=== PATIENT | male | born 1950 | race Caucasian/White ===

== ENCOUNTER 2016-08-16 11:08 | Observation (INO) | payer BC ==
[2016-08-16] VITALS (9 sets, daily range): BP systolic 118–202; BP diastolic 75–116; PULSE 74–87; RESP 16–20; TEMP 97–98; O2SAT 96–98
[~2016-08-16] VITALS: Ht 172.7 cm; Wt 81.3 kg
--- NOTE | 2016-08-16 11:39 | PD ---
HPI Chief Complaint: Chest Pain Time Seen by Provider: 11:37 Travel History International Travel<30 days: No Contact w/Intl Traveler<30days: No History of Present Illness HPI Patient comes in complaining of left-sided chest discomfort ongoing intermittently for a while now. Patient states he become more aware of it since being of this year. He states he last had a stress test 10+ years ago. Patient reports associated dyspnea on exertion, but not walking upstairs. Denies any associated shortness of breath, nausea, vomiting, headache, numbness or tingling anywhere, back pain, or abdominal pain. Patient states that when he went to his dentist was noted that his blood pressure was quite elevated and recommended he comes emergency Department for further treatment and evaluation. Patient denies any immediate family history of heart disease. PFSH Past Medical History High Cholesterol: Yes Hypertension: Yes Social History Alcohol Use: Yes Tobacco Use: Yes (rare cigar) Substance Use: No Allergies-Medications (Allergen,Severity, Reaction): Coded Allergies: Sulfa (Verified Allergy, Unknown, Rash, 08/16/16) Reported Meds & Prescriptions Reported Meds & Active Scripts Active Reported Ventolin Hfa 18 GM Inh (Albuterol Sulfate) 90 Mcg/Act Aer 2 Puff INH Q4-6H PRN [Med For Bph] Lipitor (Atorvastatin Calcium) 10 Mg Tab 10 Mg PO HS Lisinopril 10 Mg Tab 10 Mg PO DAILY Review of Systems Except as stated in HPI: all other systems reviewed are Neg Physical Exam Narrative GENERAL: Well-developed, overly nourished, in no acute distress, and non-ill appearing. SKIN: Warm and dry. HEAD: Atraumatic. Normocephalic. EYES: Pupils equal and round. EOMI. No scleral icterus. No injection or drainage. ENT: No nasal bleeding or discharge. Mucous membranes pink and moist. NECK: Trachea midline. No JVD. Supple. No nuclear rigidity. CARDIOVASCULAR: Regular rate and rhythm. No murmur appreciated. RESPIRATORY: No accessory muscle use. No respiratory distress. Clear to auscultation. Breath sounds equal bilaterally. MUSCULOSKELETAL: No obvious deformities. No clubbing. No cyanosis. No edema. Full range of motion. NEUROLOGICAL: Awake and alert. No obvious cranial nerve deficits. Motor grossly within normal limits. Normal speech. PSYCHIATRIC: Appropriate mood and affect; insight and judgment normal. Data Data Last Documented VS Vital Signs Date Time Temp Pulse Resp B/P Pulse Ox O2 Delivery O2 Flow Rate FiO2 08/16/16 12:27 80 16 168/104 98 Room Air 08/16/16 11:20 98.0 Orders Electrocardiogram (08/16/16 11:35) Basic Metabolic Panel (Bmp) (08/16/16 11:35) Ckmb (Isoenzyme) Profile (08/16/16 11:35) Complete Blood Count With Diff (08/16/16 11:35) Magnesium (Mg) (08/16/16 11:35) Prothrombin Time / Inr (Pt) (08/16/16 11:35) Act Partial Throm Time (Ptt) (08/16/16 11:35) Troponin I (08/16/16 11:35) Chest, Single Ap (08/16/16 11:35) Ecg Monitoring (08/16/16 11:35) Bilateral Bp Monitoring (08/16/16 11:35) Iv Access Insert/Monitor (08/16/16 11:35) Oximetry (08/16/16 11:35) Oxygen Administration (08/16/16 11:35) Aspirin Chew (Aspirin Chew) (08/16/16 11:45) Clonidine (Catapres) (08/16/16 11:45) Labs Laboratory Tests Test 08/16/16 11:30 White Blood Count 7.1 TH/MM3 Red Blood Count 5.83 MIL/MM3 Hemoglobin 16.5 GM/DL Hematocrit 49.3 % Mean Corpuscular Volume 84.6 FL Mean Corpuscular Hemoglobin 28.3 PG Mean Corpuscular Hemoglobin 33.4 % Concent Red Cell Distribution Width 12.9 % Platelet Count 245 TH/MM3 Mean Platelet Volume 7.7 FL Neutrophils (%) (Auto) 59.9 % Lymphocytes (%) (Auto) 28.6 % Monocytes (%) (Auto) 7.5 % Eosinophils (%) (Auto) 3.3 % Basophils (%) (Auto) 0.7 % Neutrophils # (Auto) 4.4 TH/MM3 Lymphocytes # (Auto) 2.0 TH/MM3 Monocytes # (Auto) 0.5 TH/MM3 Eosinophils # (Auto) 0.2 TH/MM3 Basophils # (Auto) 0.0 TH/MM3 CBC Comment DIFF FINAL Differential Comment Prothrombin Time 11.0 SEC Prothromb Time International 1.0 RATIO Ratio Activated Partial 26.5 SEC Thromboplast Time Sodium Level 141 MEQ/L Potassium Level 3.9 MEQ/L Chloride Level 105 MEQ/L Carbon Dioxide Level 27.0 MEQ/L Anion Gap 9 MEQ/L Blood Urea Nitrogen 18 MG/DL Creatinine 0.96 MG/DL Estimat Glomerular Filtration 79 ML/MIN Rate Random Glucose 87 MG/DL Calcium Level 8.9 MG/DL Magnesium Level 2.6 MG/DL Total Creatine Kinase 85 U/L Troponin I LESS THAN 0.02 NG/ML MDM Medical Decision Making Medical Screen Exam Complete: Yes Emergency Medical Condition: Yes Interpretation(s) EKG reviewed by Dr. Kramer, shows normal sinus rhythm with ventricular rate of 74. No STEMI and no acute changes. Differential Diagnosis Acute coronary syndrome, atypical chest pain, uncontrolled hypertension, other Narrative Course Patient seen and examined. Initial laboratory, EKG revealed studies were obtained and reviewed. Discussed patient with Dr. Kramer, saw evaluated the patient and recommends having the patient placed in the chest pain center for further treatment and evaluation. Discussed all findings and plan of care with patient and his , who is agreeable for admission. All questions were answered. Physician Communication Physician Communication [address] Valdivia, who is agreeable to admit the patient. Diagnosis Primary Impression: Chest pain Qualified Code: R07.9 - Chest pain, unspecified type Additional Impression: Hypertension Qualified Code: I10 - Essential hypertension Condition: Stable Bryan Gurrola Aug 16, 2016 11:39
[2016-08-16] MEDS ORDERED: cloNIDine HCL 0.2 MG TAB PO ONE (11:45)
[2016-08-16] MEDS ORDERED: ASPIRIN 81 MG CHEW TAB PO ONE (11:45)
[2016-08-16] MEDS ORDERED: LISI10TA3 PO (11:49)
[2016-08-16] MEDS ORDERED: LIPI10TA PO (11:49)
[2016-08-16] MEDS ORDERED: [UNRECOGNIZED DRUG - REMARK] (11:49)
[2016-08-16] MEDS ORDERED: VENTAER INH (11:49)
--- NOTE | 2016-08-16 11:49 | RADHPO ---
EXAM DATE/TIME: 08/16/2016 11:38 [facility] COMPARISON: No previous studies available for comparison. INDICATIONS : High blood pressure. Mild chest pain. MEDICAL HISTORY : Hypertension. Hypercholesterolemia. SURGICAL HISTORY : None. ENCOUNTER: Initial ACUITY: 1 month PAIN SCORE: 10 LOCATION: chest FINDINGS: A single view of the chest demonstrates the lungs to be symmetrically aerated without evidence of mas s, infiltrate or effusion. The lung rosario are hyperaerated. The cardiomediastinal contours are unrem arkable. Osseous structures are intact. CONCLUSION: No acute intrathoracic disease. Marvel Li MD on August 16, 2016 at 11:47 Board Certified Radiologist. This report was verified electronically.
[2016-08-16 11:50] LABS: AUTOMATED NEUTROPHIL # 4.4 TH/MM3 (1.8-7.7); BASOPHIL % 0.7 % (0.0-2.0); EOSINOPHIL # 0.2 TH/MM3 (0-0.4); EOSINOPHIL % 3.3 % (0.0-4.0); HEMATOCRIT 49.3 % (39.0-51.0); HEMO FLAGS DIFF FINAL; LYMPH % 28.6 % (9.0-44.0); MEAN CELL VOLUME 84.6 FL (80.0-100.0); MEAN CORPUSCULAR HEMOGLOBIN 28.3 PG (27.0-34.0); MEAN CORPUSCULAR HGB CONC 33.4 % (32.0-36.0); MONO % 7.5 % (0.0-8.0); NEUT % 59.9 % (16.0-70.0); PLATELET COUNT 245 TH/MM3 (150-450); RED BLOOD COUNT 5.83 MIL/MM3 (4.50-5.90); RED CELL DISTRIBUTION WIDTH 12.9 % (11.6-17.2); WHITE BLOOD COUNT 7.1 TH/MM3 (4.0-11.0)
[2016-08-16 11:57] LABS: CHLORIDE 105 MEQ/L (98-107); POTASSIUM 3.9 MEQ/L (3.5-5.1); SODIUM (NA) 141 MEQ/L (136-145)
[2016-08-16 12:00] LABS: ANION GAP 9 MEQ/L (5-15); BLOOD UREA NITROGEN 18 MG/DL (7-18); MAGNESIUM 2.6 MG/DL (1.5-2.5)
[2016-08-16 12:01] LABS: APTT (PATIENT) 26.5 SEC (24.3-30.1)
[2016-08-16 12:03] LABS: GLOMERULAR FILTRATION RATE 79 ML/MIN (>89)
[2016-08-16 12:10] LABS: CREATINE KINASE 85 U/L (39-308)
[2016-08-16] MEDS ORDERED: cloNIDine HCL 0.1 MG TAB PO PRN (12:45)
[2016-08-16] MEDS ORDERED: ACETAMINOPHEN/HYDROcodone 325 MG/7.5 MG TAB PO PRN (12:45)
[2016-08-16] MEDS ORDERED: ACETAMINOPHEN 500 MG CPLT PO PRN (12:45)
[2016-08-16] MEDS ORDERED: NITROGLYCERIN 0.4 MG SL 25 TABS/BTL SL PRN (12:45)
[2016-08-16] MEDS ORDERED: SODIUM CHLORIDE 0.9% FLUSH 5 ML FLUSH IVF PRN (12:45)
[2016-08-16] MEDS ORDERED: ONDANSETRON HCL 4 MG/2 ML VIAL IV PRN (12:45)
[2016-08-16] MEDS: METOPROLOL TARTRATE 25 MG TAB PO SCH ×2 (13:20→20:46)
[2016-08-16] MEDS: LISINOPRIL 10 MG TAB PO SCH (13:22)
[2016-08-16 15:37] LABS: CREATINE KINASE 69 U/L (39-308)
--- NOTE | 2016-08-16 17:32 | HHI.HP ---
[facility] Service [facility] Primary Care Physician Carrol Deluna MD Admission Diagnosis atypical chest pain, hypertension Diagnoses: (1) Chest pain Diagnosis: Principal (2) Hypertension Diagnosis: Secondary (3) Hyperlipidemia Diagnosis: Secondary Chief Complaint: Chest pain Travel History International Travel<30 Days: No Contact w/Intl Traveler <30 Da: No Traveled to Known Affected Are: No History of Present Illness 65-year-old male with known history of hypertension, hyperlipidemia who presented to the hospital because of elevated blood pressure. Patient states that he has long-standing history of hypertension and he went to the dentist today and was told that his blood pressure was elevated at 171/118. Patient states that over the last month he has been having intermittent chest discomfort located in the middle part of his chest. It is not worsened with activity. He states that it is very intermittent, self resolving. Nothing makes it better, nothing makes it worse. He denies any nausea, vomiting, shortness of breath, dyspnea. He does not indicate that he has notified his primary medical doctor that he experiencing any chest discomfort. The patient came to emergency department today because of his elevated blood pressure at the dentist. Because of his symptoms is recommended by the ER physician that the patient be observed and chest pain center for further evaluation and management. Review of Systems Constitutional: DENIES: Diaphoretic episodes, Fatigue, Fever, Weight gain, Weight loss, Chills, Dizziness, Change in appetite, Night Sweats Eyes: DENIES: Blurred vision, Diplopia, Eye inflammation, Eye pain, Vision loss , Double Vision Ears, nose, mouth, throat: DENIES: Vertigo, Nasal discharge, Throat pain, Ear Pain, Running Nose, Sinus Pain Respiratory: DENIES: Apneas, Cough, Snoring, Wheezing, Hemoptysis, Sputum production, Shortness of breath Cardiovascular: COMPLAINS OF: Chest pain, DENIES: Palpitations, Syncope, Dyspnea on Exertion, Lower Extremity Edema, Orthopnea Gastrointestinal: DENIES: Abdominal pain, Black stools, Bloody stools, Constipation, Diarrhea, Nausea, Vomiting, Difficulty Swallowing, Anorexia Neurologic: DENIES: Abnormal gait, Headache, Localized weakness, Paresthesias, Seizures, Speech Problems, Tremor, Poor Balance Psychiatric: DENIES: Anxiety, Confusion, Mood changes, Depression Past Family Social History Past Medical History Hypertension Hyperlipidemia Past Surgical History Vasectomy Reported Medications Reported Meds & Active Scripts Active Reported Ventolin Hfa 18 GM Inh (Albuterol Sulfate) 90 Mcg/Act Aer 2 Puff INH Q4-6H PRN [Med For Bph] Lipitor (Atorvastatin Calcium) 10 Mg Tab 10 Mg PO HS Lisinopril 10 Mg Tab 10 Mg PO DAILY Allergies: Coded Allergies: Sulfa (Verified Allergy, Unknown, Rash, 08/16/16) Family History Reviewed and rather unremarkable. Patient states that only cardiac history as in his uncle with history of myocardial infarction Social History Patient used to smoke cigarettes, however he only smokes approximately 2 cigars weekly. Patient states that he drinks 1 beer daily. Patient denies any illicit drugs Physical Exam Vital Signs Vital Signs Date Time Temp Pulse Resp B/P Pulse Ox O2 Delivery O2 Flow Rate FiO2 08/16/16 16:00 87 16 128/87 97 Room Air 08/16/16 13:54 84 16 122/76 98 Room Air 08/16/16 12:53 84 18 153/83 98 Room Air 08/16/16 12:27 80 16 168/104 98 Room Air 08/16/16 11:30 16 98 Room Air 08/16/16 11:30 98 Room Air 08/16/16 11:30 80 197/114 202/116 08/16/16 11:25 80 08/16/16 11:20 98.0 80 16 197/114 98 Physical Exam GENERAL: Well-developed, well-nourished, in no acute distress. alert and orientated HEENT: Head is normocephalic without any lesions or masses noted. Facial features are symmetric. Eyes: Pupils equal round reactive to light. Extraocular muscles are intact. Conjunctivae were clear. Oropharyngeal: Pharynx without any erythema edema. Tongue is midline without deviation. Buccal mucosa is moist without any masses or lesions NECK: Supple without any masses. Trachea midline no deviation. No JVD, no bruits are appreciated CARDIAC: Regular rhythm, regular rate. S1/S2 are heard. No murmurs gallops or rubs. LUNGS: Clear to auscultation bilaterally. No wheeze, rhonchi or rales. No use of accessory muscles on inspiration or expiration. ABDOMEN: Soft, nontender. Nondistended. Bowel sounds heard in all 4 quadrants. No organomegaly or masses. Negative rebound, negative guarding EXTREMITIES: No edema, pulses are equal bilaterally. No cyanosis or clubbing NEUROLOGY: Mood and affect appear appropriate. Cranial nerves II through XII grossly intact. Muscle strength 5/5 in upper and lower extremities bilaterally. Deep tendon reflexes are 2+ in upper and lower extremities bilaterally. Laboratory Laboratory Tests Test 08/16/16 08/16/16 11:30 14:30 White Blood Count 7.1 Red Blood Count 5.83 Hemoglobin 16.5 Hematocrit 49.3 Mean Corpuscular Volume 84.6 Mean Corpuscular Hemoglobin 28.3 Mean Corpuscular Hemoglobin 33.4 Concent Red Cell Distribution Width 12.9 Platelet Count 245 Mean Platelet Volume 7.7 Neutrophils (%) (Auto) 59.9 Lymphocytes (%) (Auto) 28.6 Monocytes (%) (Auto) 7.5 Eosinophils (%) (Auto) 3.3 Basophils (%) (Auto) 0.7 Neutrophils # (Auto) 4.4 Lymphocytes # (Auto) 2.0 Monocytes # (Auto) 0.5 Eosinophils # (Auto) 0.2 Basophils # (Auto) 0.0 CBC Comment DIFF FINAL Differential Comment Prothrombin Time 11.0 Prothromb Time International 1.0 Ratio Activated Partial 26.5 Thromboplast Time Sodium Level 141 Potassium Level 3.9 Chloride Level 105 Carbon Dioxide Level 27.0 Anion Gap 9 Blood Urea Nitrogen 18 Creatinine 0.96 Estimat Glomerular Filtration 79 Rate Random Glucose 87 Calcium Level 8.9 Magnesium Level 2.6 Total Creatine Kinase 85 69 Troponin I LESS THAN 0.02 LESS THAN 0.02 Result Diagram: 08/16/16 1130 08/16/16 1130 Imaging Last Impressions Chest X-Ray 08/16/16 1135 Signed Impressions: Service Date/Time: Tuesday, August 16, 2016 11:38 - CONCLUSION: No acute intrathoracic disease. Marvel Li MD Assessment and Plan Assessment and Plan Chest pain, atypical Patient with increased risk factors to include age, male, hypertension, hyperlipidemia, remote family history of heart disease We'll continue to evaluate serial cardiac enzymes rule out any acute coronary event Serial EKGs thus far showed normal sinus rhythm without any changes We'll pursue exercise stress test rule out any underlying ischemia Continue aspirin and nitroglycerin as needed next line Hypertension Continue home medications Hyperlipidemia Continue home medications DVT prevention Sequential compression devices Problem Qualifiers (1) Chest pain: Qualified Code: R07.9 - Chest pain, unspecified type (2) Hypertension: Qualified Code: I10 - Essential hypertension (3) Hyperlipidemia: Qualified Code: E78.5 - Hyperlipidemia, unspecified hyperlipidemia type Efra Elias Aug 16, 2016 17:32
[2016-08-16 18:10] LABS: CREATINE KINASE 77 U/L (39-308)
[2016-08-16] MEDS: SODIUM CHLORIDE 0.9% FLUSH 5 ML FLUSH IVF SCH (20:46)
[2016-08-16] MEDS ORDERED: ATORVASTATIN 10 MG TAB PO SCH (21:00)
[2016-08-17] VITALS: BP 116/76; PULSE 81; RESP 20; TEMP 97.2; O2SAT 94
[2016-08-17 04:00] VITALS: BP 120/87; PULSE 76; RESP 20; TEMP 96; O2SAT 97
[2016-08-17 08:00] VITALS: BP 129/89; PULSE 77; RESP 16; TEMP 97; O2SAT 96
[2016-08-17] MEDS ORDERED: ASPIRIN 325 MG TAB PO SCH (09:00)
--- NOTE | 2016-08-17 09:24 | HHI.PR ---
Subjective Remarks Patient seen and examined today with Dr. Valdivia. Patient states that he still has been having intermittent twinge type discomfort in the left side of his chest. Objective Vitals Vital Signs Date Time Temp Pulse Resp B/P Pulse Ox O2 Delivery O2 Flow Rate FiO2 08/17/16 04:00 96.0 76 20 120/87 97 08/17/16 00:00 97.2 81 20 116/76 94 08/16/16 20:16 78 08/16/16 20:00 97.0 74 20 118/75 96 08/16/16 18:15 97.1 78 18 130/85 97 08/16/16 16:00 87 16 128/87 97 Room Air 08/16/16 13:54 84 16 122/76 98 Room Air 08/16/16 12:53 84 18 153/83 98 Room Air 08/16/16 12:27 80 16 168/104 98 Room Air 08/16/16 11:30 16 98 Room Air 08/16/16 11:30 98 Room Air 08/16/16 11:30 80 197/114 202/116 08/16/16 11:25 80 08/16/16 11:20 98.0 80 16 197/114 98 I/O 08/16/16 08/16/16 08/16/16 08/17/16 08/17/16 08/17/16 07:00 15:00 23:00 07:00 15:00 23:00 Intake Total 60 ml 120 ml Balance 60 ml 120 ml Intake Oral 60 ml 120 ml # Voids 1 1 # Bowel Movements 1 0 Result Diagram: 08/16/16 1130 08/16/16 1130 Objective Remarks GENERAL: Well-developed, well-nourished, in no acute distress. alert and orientated HEENT: Head is normocephalic without any lesions or masses noted. Facial features are symmetric. Eyes: Extraocular muscles are intact. Conjunctivae were clear. NECK: Supple without any masses. Trachea midline no deviation. No JVD, CARDIAC: Regular rhythm, regular rate. S1/S2 are heard. No murmurs gallops or rubs. LUNGS: Clear to auscultation bilaterally. No wheeze, rhonchi or rales. No use of accessory muscles on inspiration or expiration. ABDOMEN: Soft, nontender. Nondistended. Bowel sounds heard in all 4 quadrants. No organomegaly or masses. Negative rebound, negative guarding EXTREMITIES: No edema, pulses are equal bilaterally. No cyanosis or clubbing NEUROLOGY: Mood and affect appear appropriate. Cranial nerves II through XII grossly intact. Moving all extremities, speech is clear Urinary Catheter: No Vascular Central Line Catheter: No A/P Assessment and Plan Chest pain, atypical Patient with increased risk factors to include age, male, hypertension, hyperlipidemia, remote family history of heart disease Serial cardiac enzymes were performed and reviewed by me which did not indicate any acute coronary event Serial EKGs were reviewed by myself which shows normal sinus rhythm without any changes Exercise stress test was performed which did not indicate any underlying ischemia Continue aspirin and nitroglycerin as needed Hypertension Continue home medications Hyperlipidemia Continue home medications DVT prevention Sequential compression devices Written by Efra Elias PA-C, acting as scribe for Dr. Valdivia on 08/17/16 at 1215. The documentation accurately reflects the work and decisions performed face-to- face by Dr. Valdivia on 08/17/16 at 1215. Discharge Planning Discharge home in stable condition Activity: Ad altagracia. Diet: Healthy heart diet Medications per medication reconciliation Follow-up primary medical doctor in one week Efra Elias Aug 17, 2016 09:24
[2016-08-17] MEDS ORDERED: METO25TA3 PO (09:26)
[2016-08-17] MEDS ORDERED: ASPI325T PO (09:26)
--- NOTE | 2016-08-17 09:26 | HHI.DCPOC ---
Discharge Care Plan Diagnosis: (1) Chest pain (2) Hypertension Goals to Promote Your Health * To prevent worsening of your condition and complications * To maintain your health at the optimal level Directions to Meet Your Goals Take your medications as prescribed Follow your dietary instruction Follow activity as directed Keep your appointments as scheduled Take your immunizations and boosters as scheduled If your symptoms worsen call your PCP, if no PCP go to Urgent Care Center or Emergency Room Smoking is Dangerous to Your Health. Avoid second hand smoke Call the 24-hour hour crisis hotline for domestic abuse at Efra Elias Aug 17, 2016 09:26
[2016-08-17] MEDS: LISINOPRIL 10 MG TAB PO SCH (09:59)
[2016-08-17] MEDS: METOPROLOL TARTRATE 25 MG TAB PO SCH (09:59)
[2016-08-17] MEDS: SODIUM CHLORIDE 0.9% FLUSH 5 ML FLUSH IVF SCH (09:59)
--- NOTE | 2016-08-17 21:11 | EKG ---
Date Performed: 08/16/2016 Time Performed: 17:34:16 PTAGE: 65 years EKG: Sinus rhythm Normal ECG PREVIOUS TRACING : 08/16/2016 15.08 DOCTOR: Yuan Liao Interpretating Date/Time 08/17/2016 21:05:15
--- NOTE | 2016-08-17 21:17 | EKG ---
Date Performed: 08/16/2016 Time Performed: 15:08:16 PTAGE: 65 years EKG: Sinus rhythm Normal ECG PREVIOUS TRACING : 08/16/2016 11.20 DOCTOR: Yuan Liao Interpretating Date/Time 08/17/2016 21:08:16
--- NOTE | 2016-08-17 21:26 | EKG ---
Date Performed: 08/16/2016 Time Performed: 11:20:04 PTAGE: 65 years EKG: Sinus rhythm Normal ECG NO PREVIOUS TRACING DOCTOR: Yuan Liao Interpretating Date/Time 08/17/2016 21:13:12
--- NOTE | 2016-08-18 16:04 | TR ---
Date Performed: 08/17/2016 Time Performed: 08:53:28 DOCTOR: Breanna Greco DRUG LIST: CLINICAL HISTORY: CHEST PAIN REASON FOR TEST: Angina REASON FOR ENDING: Completed Protocol OBSERVATION: Chest Pain: None CONCLUSION: Patient tolerated DEB protocol with Total Exercise Time=6:00 Maximum EW=912 % Targ et HR Dilvkikw=965.0% Maximum ZU=238/92, Testing stopped secondary to goals acheived, patient reached target HR. During peak exercise, patient was asymptomatic, no significant ST depressions, Quick upsl oping ST segments, HR and BP appropriate response to exercise. Recovery period, patient was asymptoma tic, HR and BP returned to baseline COMMENTS:
== END 2016-08-17 12:40 | disposition home or self-care (01) ==
LOC: PHEFT 11:08 → PHEDA 12:33 → PHEDH 16:33 → PH3B 18:02
PROVIDERS: ADMIT Family Medicine; ATTEND Family Medicine
DX: R07.9 Chest pain, unspecified (principal); I10 Essential (primary) hypertension; R06.09 Other forms of dyspnea; E78.00 Pure hypercholesterolemia, unspecified; Z79.899 Other long term (current) drug therapy; E78.5 Hyperlipidemia, unspecified
CPT/HCPCS: 71010; 80048; 82550; 83735; 84484; 85025; 85610; 85730; 93005; 93017; 99285; G0378